=== PATIENT | female | born 1955 | race African-American/Black ===

== ENCOUNTER 2018-01-12 09:34 | Emergency (ER) | payer OTHER, SELFPAY ==
[2018-01-12] VITALS (8 sets, daily range): BP systolic 116–196; BP diastolic 6–125; PULSE 60–79; RESP 16–18; TEMP 36.2; O2SAT 94–100; BMI 34.2
--- NOTE | 2018-01-12 09:44 | RAD_ITS ---
STUDY: X-RAY - LEFT ANKLE REASON FOR EXAM: Female, 62 years old. Fell today. TECHNIQUE: 2 view(s) of the ankle. COMPARISON: Left tibia fibula, January 12, 2018. FINDINGS: Normal visualized distal tibia.. There is a posterior angulated fracture of the distal fibula. There is posterior dislocation of the tibiotalar articulation. Normal visualized talus and calcaneus. The visualized subtalar, talonavicular, calcaneocuboid and tarsal articulations are normal. There is diffuse soft tissue swelling. RAD/Ankle min 3 Views IMPRESSION: Posterior dislocation at the ankle with associated distal fibular fracture. Electronically Signed: Guerrero Wisdom DO at 10:26 EST Tel [phone], Service support ,
--- NOTE | 2018-01-12 09:44 | RAD_ITS ---
STUDY: X-RAY - LEFT TIBIA AND FIBULA REASON FOR EXAM: Female, 62 years old. Fall today. TECHNIQUE: 2 view(s) of the tibia and fibula were obtained. COMPARISON: Left ankle, January 12, 2018. [place] FINDINGS: There is a posterior dislocation of the ankle with an associated fracture of the distal fibula. The tibia appears intact. The knee is intact. There is diffuse soft tissue swelling. RAD/Tibia & Fibula 2 Views IMPRESSION: Fracture dislocation of the ankle. Electronically Signed: Guerrero Wisdom DO at 10:25 EST Tel [phone], Service support ,
[2018-01-12] MEDS: Ondansetron 4 MG/2 ML Vial IV (10:08)
--- NOTE | 2018-01-12 10:20 | ED.DCSUM_ITS ---
- ER Visit Summary Date of Service: 01/12/18 Chief Complaint: Left ankle injury History of Present Illness: The patient is a 62 F is otherwise healthy presents with left ankle injury. Patient was walking outside. She slipped on ice and fell with her ankle underneath her. She suffered she thinks an inversion injury. She had obvious deformity and was able to bear weight. She did not strike her head. She denies loss of consciousness. She has no history of prior orthopedic injury. The patient is otherwise very healthy at baseline. Physical Examination: Vital signs reviewed General: Well-nourished, well-developed Head: Normocephalic, atraumatic Eyes: Pupils equal and reactive, extraocular muscles intact Neck, supple, no lymphadenopathy Heart: Regular rate and rhythm Respiratory: No distress, clear bilaterally Abdomen: Soft, nontender, nondistended, no peritoneal signs Back: Nontender Extremities: She has obvious deformity of the left ankle. She has tenderness bimalleolar. There is mild pain at the proximal fibula. Pulses are normal. Skin is intact. Neurologic function intact distally. No pain at the head of the fifth metatarsal. Skin: Normal color no rash Neuro: Alert and oriented, no focal or lateralizing deficits Test Results: [] Emergency Department Course and Treatment: The patient has an obvious deformity of the ankle. Plain films do show a bimalleolar fracture with lateral dislocation. The patient was consented for conscious sedation. Patient was given propofol. The fracture was reduced at the bedside. The repeat films do show marked improvement of alignment. Her pulses were normal. The patient was counseled on compartment syndrome and reasons to return. I did discuss the patient with Dr. Rodriguez for close follow-up. He agrees with plan to see the patient in the office early this week. The patient already has crutches at home. She will be given analgesics. She is discharged. Treatment Plan: [] Disposition: Discharge Impression:. Bimalleolar left ankle fracture-closed with dislocation 2. Conscious sedation 3. Fracture reduction 4. Splint by ED physician This note was generated with [employer] dictation software. It may contain incorrect words, spelling, and punctuation that were not noted in review of the chart prior to signing ED Disposition - Plan for ED Patient: Disposition: Home or Assisted Living Chief Complaint: Lower Extremity Injury Instructions: ED Fx Ankle General Prescriptions: Hydrocodone Bitart/Apap 5-325 [[place] 5/325] 1 tab PO Q4H PRN PRN 3 Days #12 tab PRN Reason: Pain Referrals: Vasquez Rodriguez DO [STAFF PHYSICIAN] -
[2018-01-12] MEDS: Propofol 200 MG/20 ML Vial IV BOLUS (10:30)
--- NOTE | 2018-01-12 10:41 | RAD_ITS ---
STUDY: X-RAY - LEFT ANKLE REASON FOR EXAM: Female, 62 years old. Post reduction. TECHNIQUE: 3 view(s) of the ankle. COMPARISON: Left ankle, January 12, 2018. FINDINGS: There is mosque of the ankle joint. There is slight lateral subluxation. The distal fibular fracture is in grossly normal alignment. A semiopaque splint surrounds the ankle. RAD/Ankle min 3 Views IMPRESSION: Post reduction of left ankle fracture/dislocation. Electronically Signed: Guerrero Wisdom DO at 11:10 EST Tel [phone], Service support ,
== END 2018-01-12 12:03 | disposition home or self-care (01) ==
LOC: ED 11:07
PROVIDERS: Emergency Provider Emergency Medicine; Family Provider Family Medicine; PCP Family Medicine
DX: S82.842A Displaced bimalleolar fracture of left lower leg, initial encounter for closed fracture (principal); W00.0XXA Fall on same level due to ice and snow, initial encounter; Y93.01 Activity, walking, marching and hiking; Y92.9 Unspecified place or not applicable; Y99.9 Unspecified external cause status; J45.909 Unspecified asthma, uncomplicated; K21.9 Gastro-esophageal reflux disease without esophagitis
CPT/HCPCS: 27810; 73590; 73610; 96374; 96375; 99285; J7030; A4216; J2405

== ENCOUNTER 2018-01-23 07:49 | Day surgery (SDC) | payer OTHER, SELFPAY ==
[2018-01-23] VITALS (9 sets, daily range): BP systolic 119–156; BP diastolic 62–84; PULSE 68–82; RESP 16–18; TEMP 36.2–37.1; O2SAT 95–100; BMI 33.9
--- NOTE | 2018-01-23 08:15 | EKG12_ITS ---
Test Reason : PRE OP Blood Pressure : / mmHG Vent. Rate : 075 BPM Atrial Rate : 075 BPM P-R Int : 152 ms QRS Dur : 062 ms QT Int : 380 ms P-R-T Axes : 051 -20 005 degrees QTc Int : 424 ms Normal sinus rhythm Leftward axis Poor R wave progression Septal [place], age undetermined, cannot be excluded\ Consider precordial lead misplacement (v2-v3) Consider repeat ecg Inferior infarct , age undetermined Abnormal ECG Confirmed by MICHAEL CARY, OLMAN ([id number]), business editor AFSHAN YANCEY ([id number]) on 01/24/2018 1:47:00 PM Referred By: Vasquez Rodriguez Confirmed By:OLMAN RODRIGUEZ MD
[2018-01-23] MEDS: oxyCODONE HCl Cr 10 MG Tablet PO (08:58)
[2018-01-23] MEDS: Celecoxib 200 MG Capsule PO (08:58)
[2018-01-23] MEDS: Cefazolin 2 GM in 0.9% Normal Saline 100 ML IV (11:01)
--- NOTE | 2018-01-23 11:02 | OP.PN_ITS ---
Immediate Post-Op Note Date of Procedure: 01/23/18 Primary Surgeon/Physician: Vasquez Rodriguez DO formulator compounder: Irma Hawthorne Pre-Operative Diagnosis: Left closed fracture dislocation of the ankle Post-Operative Diagnosis: As above Surgery/Procedure Performed:: Left ankle open reduction internal fixation with syndesmotic repair Description of Surgical Findings:: See dictation Estimated Blood Loss: 20 Specimen's removed: None ASA Class: ASA1 Normal Healthy Patient - Admit VTE Documentation VTE Present on Admission: No VTE Mechan Device Prophylaxis: SCD's, Knee High WALESKA Hose VTE Pharm Prophylaxis ordered?: Yes
--- NOTE | 2018-01-23 11:02 | PCM.DC.ORTHO ---
Discharge Activity: Return to Normal Activity, May not drive while taking narcotic pain medications., May Shower, Use Walker, Use Crutches May resume sexual activity in: No Restrictions Ice area for (Minutes): 20 Weight Bearing Status: No weight bearing Keep extremity elevated above heart level: Left Leg Call your doctor if your incision/area has: Continuous Slow Oozing, Sudden Increased Bleeding, Increased Pain/ Swelling, Increased Redness, Foul Smelling Discharge, Swelling at the incision site Call your doctor if you observe: Fever of 101 or Higher, Coldness, Increased Pain, Numbness or Tingling, Change in Color, Inability to urinate, Inability to have a bowel movement, Using more than one pad per hour, Shortness of breath, Dizziness, Fainting spells, Swelling in the ankles, Chest pain, Prolonged hiccoughing, Increased palpitations (irregular heartbeat), Calf discomfort, Uncontrolled pain Suture Line Care: Avoid Pulling/Pushing, Avoid Pinching/Bending Allergies/Adverse Reactions: Allergies No Known Allergies Allergy (Verified 01/20/18 15:08) Medications to take at Discharge Albuterol IH (ProAir) [Proair Hfa (SP)Vent Pts] 1 puff INHALATION DAILY 01/20/18 Fluticasone 0.05% [Flonase Nasal [place]] 1 spray NASAL DAILY 01/20/18 Naproxen 500 mg PO PRN PRN 01/20/18 Aspirin E.C. [Ecotrin] 325 mg PO BID #30 tab 01/23/18 Cephalexin [Keflex] 500 mg PO Q12 #10 cap 01/23/18 Docusate Sodium [Colace] 100 mg PO BID PRN PRN #10 cap 01/23/18 Famotidine [Pepcid] 20 mg PO DAILY #30 tab 01/23/18 Oxycodone HCl/Acetaminophen [Percocet 5/325] 1 - 2 tablet PO Q4H PRN PRN #60 tablet 01/23/18 ProMETHAzine [Phenergan] 25 mg PO Q4H PRN PRN #10 tab 01/23/18 The following prescriptions were given: Oxycodone HCl/Acetaminophen [Percocet 5/325] 1 - 2 tablet PO Q4H PRN PRN #60 tablet PRN Reason: Pain ProMETHAzine [Phenergan] 25 mg PO Q4H PRN PRN #10 tab PRN Reason: Nausea Cephalexin [Keflex] 500 mg PO Q12 #10 cap Docusate Sodium [Colace] 100 mg PO BID PRN PRN #10 cap PRN Reason: Constipation Famotidine [Pepcid] 20 mg PO DAILY #30 tab Aspirin E.C. [Ecotrin] 325 mg PO BID #30 tab Primary Care Physician: Rock Berrios III, MD [Primary Care Provider] - Please Follow Up With: Vasquez Rodriguez DO When: CALL [facility] FOR APPT FOR 2 WEEKS Proposed Discharge Date: 01/23/18
--- NOTE | 2018-01-23 11:03 | PCM.OPRPT ---
Report of Operation Date of Procedure: 01/23/18 Pre-Operative Diagnosis: Left closed fracture dislocation of the ankle Post-Operative Diagnosis: As above Surgery/Procedure Performed:: Left ankle open reduction internal fixation with syndesmotic repair Description of Surgical Findings:: 62-year-old female who sustained a fall while tripping on ice resulting in a fracture dislocation of her left ankle. The injury was closed. It was reduced by the emergency room staff. She had a symmetric reduction of the tibial talar joint but had a Long C fibula fracture and associated small posterior malleolus fracture concerning for possible syndesmosis injury. My recommendation was for open reduction internal fixation and evaluation of the syndesmosis for possible primary repair as needed. Patient agreed. She was met in the holding area where the left lower extremity was identified and marked by the orthopedic surgeon. Initial preoperative evaluation showed the skin to be appropriate for surgical intervention. She subsequent taken the operating room in satisfactory condition with somewhat to place to identify patient up procedure limb. She received 2 g Ancef. She had a well-placed tourniquet left proximal thigh. She was then prepped and draped in usual fashion. Left lower extremity was elevated and the tourniquet was an Esmarch was used for exsanguination tourniquet was increased to 200 for 50 mmHg for roughly 45 minutes. Using C-arm visualization the fracture site was identified. Patient then had a longitudinal incision made across the distal fibula moving proximally. Sharp dissection down to soft tissues Bovie cautery to lose control any bleeding. Official peroneal nerve was protected. At that point time fracture site was identified and the ends freshened accordingly. A soft curette was used to remove any interdigitated early callus and soft tissue. We then copiously irrigated the joint. The fracture ends were somewhat comminuted on the inferior aspect of the fracture. We made an attempt at an initial closed reduction in longitudinal positioning again confirming placement under C arm in AP and lateral planes. However we made an attempt to lag lag screw would not hold again secondary to inferior comminution. At that point time a bridge technique was performed. A one third tubular plate was placed found to be in appropriate position AP and lateral planes. We then provisionally fixed the proximal aspect using standard AO technique. We then placed longitudinal traction across the fracture site and were able to reapproximate the overall anatomy with an acceptable positioning in length that was confirmed again AP and lateral planes. We had good reduction of her posterior malleolus fragment. At that point time we fixed distally using standard AO technique with a combination of cortical and cancellus screws as we transitioned into the distal fibula. Again we had good overall alignment which was acceptable in the face of the fracture site comminution. We then finished our proximal fixation using all cannot cortical technique again using standard AO technique for fixation. Upon completion of our fixation we turned our attention to performing a cotton test. This was done using standard technique under C-arm visualization. We had no widening of the syndesmosis and we had no medial clear space changes. We performed a secondary external rotation stress test which again did not show any signs of medial place place widening. Mortise view showed anatomic reduction of the mortise. The wound was then copiously irrigated using standard technique. We elected to place 2 cc of DBX bone graft around the comminution site. Wound was then gently irrigated one additional time including closed in a layer technique with #1 Vicryl 3-0 Vicryl in a subicular Monocryl. Patient was then injected with 30 cc of Marcaine solution around her incision site. She was then dressed with Xeroform 4 x 4's sterile web roll and placed into an L and U-splint. I was scrubbed and available time during our procedure. There is no drains or complications. Implants included the Synthes small frag set equipment. And again 2 cc of DBX bone grafting material. Patient be discharged home nonweightbearing. She will be placed on DVT prophylaxis to include aspirin 325 p.o. twice daily for the next 2 weeks with appropriate GI prophylaxis. Any issues please contact me. Specimen's removed: None Estimated Blood Loss (mL): 20 Grafts/Implants Used: Synthes small frag, 2 cc of DBX - Complications None - Admit VTE Documentation VTE Present on Admission: No VTE Mechan Device Prophylaxis: SCD's, Knee High WALESKA Hose VTE Pharm Prophylaxis ordered?: Yes
--- NOTE | 2018-01-23 11:05 | RAD_ITS ---
STUDY: X-RAY - LEFT ANKLE REASON FOR EXAM: Female, 62 years old. Intraoperative imaging. TECHNIQUE: 3 intraoperative view(s) of the ankle. COMPARISON: None. FINDINGS: Fluoroscopic services provided for open reduction and internal fixation of the distal fibular fracture. A sideplate and screw fixation device is seen. RAD/Ankle min 3 Views IMPRESSION: Intraoperative imaging provided for ORIF of the distal fibula. Of the distal fibular fracture. There is good alignment. Electronically Signed: Iker Valladares MD at 15:15 EST Tel [phone], Service support ,
[2018-01-23] MEDS: Bupivacaine 0.25% 30 ML Vial (12:19)
[2018-01-23] MEDS: Ketorolac 15 MG/ML Vial IV (13:15)
--- NOTE | 2018-01-23 13:20 | RAD_ITS ---
STUDY: X-RAY - LEFT ANKLE REASON FOR EXAM: Female, 62 years old. Postoperative evaluation. TECHNIQUE: 3 view(s) of the ankle. COMPARISON: Comparison is made with prior examination dated January 12, 2018. FINDINGS: The patient is status post open reduction and internal fixation of the distal fibular fracture utilizing screw and sideplate fixation device. There is good anatomical alignment. Normal medial and lateral malleoli. Normal tibiotalar articulation and ankle mortise. Plantar spur. The visualized subtalar, talonavicular, calcaneocuboid and tarsal articulations are normal. Postoperative soft tissue changes. RAD/Ankle min 3 Views IMPRESSION: Status post open reduction and internal fixation of the distal fibular fracture. There is good anatomic alignment. Postoperative soft tissue changes. Electronically Signed: Iker Valladares MD at 13:45 EST Tel [phone], Service support ,
[2018-01-23] MEDS: oxyCODONE 5 MG Tablet 10 MG PO (14:31)
== END 2018-01-23 17:46 | disposition home or self-care (01) ==
LOC: SDC 07:50 → AC 07:51
PROVIDERS: Family Provider Family Medicine; PCP Family Medicine; Visit Provider Orthopaedic Surgery
PROC: (CPT 27814; principal; 2018-01-23 10:40)
DX: S82.842A Displaced bimalleolar fracture of left lower leg, initial encounter for closed fracture (principal); W00.0XXA Fall on same level due to ice and snow, initial encounter; Y93.9 Activity, unspecified; Y92.9 Unspecified place or not applicable; Y99.9 Unspecified external cause status; J45.909 Unspecified asthma, uncomplicated; Z78.0 Asymptomatic menopausal state; Z98.51 Tubal ligation status
CPT/HCPCS: 01480; 27814; 73610; 76000; 93005; J7120; J2405

== ENCOUNTER → 2018-03-05 15:35 | Outpatient (CLI) | payer OTHER, SELFPAY ==
--- NOTE | 2018-03-05 15:37 | RAD_ITS ---
STUDY: X-RAY - LEFT ANKLE REASON FOR EXAM: Female, 62 years old. Postop ORIF left ankle TECHNIQUE: 3 view(s) of the ankle. COMPARISON: 01/23/2018 FINDINGS: The cast has been removed. The metallic fixation plate and screws are seen traversing the distal fibular fracture. Alignment is unchanged. No definite signs of periosteal new bone are identified. There is demineralization of the distal osseous structures likely reflecting disuse. A plantar calcaneal spur is seen. RAD/Ankle min 3 Views IMPRESSION: No change in alignment status post ORIF. Intact orthopedic hardware. No definite signs of healing. Distal osteopenia. Electronically Signed: Thanh Luevano DO at 7:52 EDT Tel , Service support ,
== END ==
PROVIDERS: Family Provider Family Medicine; PCP Family Medicine; Visit Provider Orthopaedic Surgery
DX: M25.572 Pain in left ankle and joints of left foot (principal)
CPT/HCPCS: 73610

== ENCOUNTER → 2018-04-14 08:21 | Outpatient (CLI) | payer OTHER, SELFPAY ==
--- NOTE | 2018-04-14 08:23 | RAD_ITS ---
STUDY: X-RAY - LEFT ANKLE REASON FOR EXAM: Female, 62 years old. Postoperative evaluation. TECHNIQUE: 3 view(s) of the ankle. COMPARISON: Comparison is made with prior study dated March 05, 2018. FINDINGS: The patient is status post open reduction and internal fixation of the distal fibular fracture utilizing screws and sideplate fixation device. There is healing of the fracture. There is good alignment. Normal tibiotalar articulation and ankle mortise. Calcaneal spur. The visualized subtalar, talonavicular, calcaneocuboid and tarsal articulations are normal. The soft tissue structures are unremarkable. RAD/Ankle min 3 Views IMPRESSION: Healing of the distal fibular fracture. The alignment is maintained. Electronically Signed: Iker Valladares MD at 13:54 EDT Tel [phone], Service support ,
== END ==
PROVIDERS: Family Provider Family Medicine; PCP Family Medicine; Visit Provider Orthopaedic Surgery
DX: M25.572 Pain in left ankle and joints of left foot (principal)
CPT/HCPCS: 73610

== ENCOUNTER → 2018-05-19 10:37 | Outpatient (CLI) | payer OTHER, SELFPAY ==
--- NOTE | 2018-05-19 10:50 | RAD_ITS ---
STUDY: X-RAY - LEFT ANKLE REASON FOR EXAM: Postop pain, swelling. TECHNIQUE: 3 view(s) of the ankle. COMPARISON: Radiographs 04/14/2018 and 03/05/2018. FINDINGS: There is an intact orthopedic plate and screws transfixing a healing fracture of the distal fibular diaphysis in anatomical alignment and position. Normal medial and lateral malleoli. Normal tibiotalar articulation and ankle mortise. There is a plantar calcaneal enthesophyte. The visualized subtalar, talonavicular, calcaneocuboid and tarsal articulations are normal. There is soft tissue swelling. RAD/Ankle min 3 Views IMPRESSION: Healing fracture of the distal fibula in anatomic alignment and position. Soft tissue swelling. Electronically Signed: Jaison Acosta MD at 14:10 EDT Tel , Service support ,
== END ==
PROVIDERS: Family Provider Family Medicine; PCP Family Medicine; Visit Provider Orthopaedic Surgery
DX: M25.572 Pain in left ankle and joints of left foot (principal)
CPT/HCPCS: 73610

== ENCOUNTER 2018-07-09 12:00 | Outpatient (RCR) | payer OTHER, SELFPAY ==
--- NOTE | 2018-03-06 13:33 | HP.PTEVAL_ITS ---
Patient's Visit Information SAVANNA BRISENO is a 62 year old F referred to Physical Therapy by DO SOFI Daly with a diagnosis of L ankle ORIF. Date of Evaluation: 03/06/18 Physical Therapist: Dariel Sun PT, - Visit Plan Frequency: 2-3x /Week Duration: 4-6 Weeks Plan: PROM/mobs to L ankle, stretching/strengthening, balance/proprio, bike, and HEP - Subjective Subjective: Pt reports she fell on black ice 01/12/18 which resulted in a frracture/dislocation of L ankle. DOS: 01/23/18. Pt had ORIF performed to repair her injured leg. Pt was in a cast until 4 weeks ago, and has been in a boot ever since. Pt has to wear her boot for 2 weeks, and then is allowed to walk without a boot. N T or N at this time. No sleep diff secondary to pain. Pt reports she has a job that requires her to ambulate a lot. Pt can negotiate stairs but has to do so one step at a time. 0/10 pain at rest, 3/10 at worst - Pain L ankle Pain Intensity (Out of 10): 0 Pain Intensity Range: 3 - Objective Neuro: B LE sensation is WNL to light touch. Observation: Incisions are healed. Moderate swelling noted. ROM: R ankle DF= 8, PF= 50, INV= 28, ever= 0; L ankel DF= -10, PF= 45, Inv= 0, Ever= 0. Gait: Pt ambulates with mild limp of L LE in cam boot. Slow canance. Girth at malleolus line: L ankle 28cm, R ankle 26 cm - Goals Goal 1:: Decrease L ankle pain x 50% TO aid with IADL's Goal Time Frame: 4-6 Weeks Goal 2:: Increase L ankle strength x 1 grade to aid with RTW Goal Time Frame: 4-6 Weeks Goal 3:: Increase L ankle DF ROM x 15 degrees to aid with restoring a normal gait pattern Goal Time Frame: 4-6 Weeks Goal 4:: I with HEP Goal Time Frame: 4-6 Weeks - Rehabilitation Potential Physical Therapy Diagnosis: L ankle pain, weakness, and limited ROM secondary to L ankle Fx Rehabilitation Potential: Good - Anticipated Interventions Patient/Client Instruction: Educate patient on: Condition, Plan of Care For the Purpose of:: To improve self management Therapeutic Exercise to Include: Strength training, Endurance training, Balance training, Flexibilty training, Passive ROM, Active ROM, Dynamic Lumbar Stabilization For the Purpose of:: To decrease pain, To increase ROM, To improve muscle performance and motor function Cryotherapy (ice pack, ice massage): Yes For the Purpose of:: To decrease pain Thank you for the opportunity to evaluate your patient. For Medicare and Medicare HMO plans, please review the plan of care and approve it. It will need to be FAXED BACK to us at [phone] for Medicare purposes. Please let me know if there are questions or concerns regarding this plan of care. Physician Signature: Date:
--- NOTE | 2018-05-20 10:45 | HP.PTREVAL_ITS ---
Vasquez Rodriguez, DO, It has been my pleasure to treat SAVANNA BRISENO over the last 20 visits for L ankle ORIF. Please see the progress note below for an update on the physical therapy plan of care! Subjective: Pt reports her ankle really swelled up over the weekend from walking more. Objective/Function: L ankle pain 12/11. L ankle ROM: DF= 3, PF= 40, Inv= 10, ever= 0 degrees. L ankle MMT: grossly 4/5 throughout but still painful with all testing. Girth at malleolus: 28 cm Plan Plan: Cont with POC 2-3 x's per week x 4 more weeks Goals Goal 1:: Decrease L ankle pain x 50% TO aid with IADL's Goal Time Frame: 4-6 Weeks Goal Progress: Progressing Goal 2:: Increase L ankle strength x 1 grade to aid with RTW Goal Time Frame: 4-6 Weeks Goal Progress: Progressing Goal 3:: Increase L ankle DF ROM x 15 degrees to aid with restoring a normal gait pattern Goal Time Frame: 4-6 Weeks Goal Progress: Progressing Goal 4:: I with HEP Goal Time Frame: 4-6 Weeks Goal Progress: Progressing Anticipated Interventions Patient/Client Instruction: Educate patient on: Condition, Plan of Care For the Purpose of:: To improve self management Therapeutic Exercise to Include: Strength training, Endurance training, Balance training, Flexibilty training, Passive ROM, Active ROM, Dynamic Lumbar Stabilization For the Purpose of:: To decrease pain, To increase ROM, To improve muscle performance and motor function Cryotherapy (ice pack, ice massage): Yes For the Purpose of:: To decrease pain Please do not hesitate to contact me at [phone] by phone or Fax: if you have questions or concerns regarding this new plan of care! Sincerely, Dariel Sun, PT,
--- NOTE | 2018-07-09 12:23 | HP.PTDCSUM ---
HP - PT D/C Summary It has been my pleasure to treat SAVANNA BRISENO under orders from Vasquez Rodriguez DO, for the diagnosis of L ankle ORIF for a total of 28 visit(s). Discharge Date: Please see the following information for a summary of their discharge status. - Subjective Subjective: Pt reports no pain this date, just stiffness - Pain L ankle Pain Intensity (Out of 10): 0 - Overall Improvement % Improvement: 90 - Objective Objective/Function: L ankle pain 0/10. L ankle ROM: df= 12, pf= 43 degrees. L ankle MMT: 5/5 throughout. I with HEP. Rx goals achieved - Goals Goal 1:: Decrease L ankle pain x 50% TO aid with IADL's Goal Progress: Goal Met Goal 2:: Increase L ankle strength x 1 grade to aid with RTW Goal Progress: Goal Met Goal 3:: Increase L ankle DF ROM x 15 degrees to aid with restoring a normal gait pattern Goal Progress: Progressing Goal 4:: I with HEP Goal Progress: Progressing - Plan Plan: Discharge - D/C Information If there are questions or concerns regarding this patient's physical therapy, please feel free to call me at [phone]. Thank you for the referral of this patient. Sincerely, Dariel Sun, PT,
--- NOTE | 2018-07-09 12:27 | HP.PTDCSUM_ITS ---
HP - PT D/C Summary It has been my pleasure to treat SAVANNA BRISENO under orders from Vasquez Rodriguez DO , for the diagnosis of L ankle ORIF for a total of 28 visit(s). Discharge Date: Please see the following information for a summary of their discharge status. - Subjective Subjective: Pt reports no pain this date, just stiffness - Pain L ankle Pain Intensity (Out of 10): 0 - Overall Improvement % Improvement: 90 - Objective Objective/Function: L ankle pain 0/10. L ankle ROM: df= 12, pf= 43 degrees. L ankle MMT: 5/5 throughout. I with HEP. Rx goals achieved - Goals Goal 1:: Decrease L ankle pain x 50% TO aid with IADL's Goal Progress: Goal Met Goal 2:: Increase L ankle strength x 1 grade to aid with RTW Goal Progress: Goal Met Goal 3:: Increase L ankle DF ROM x 15 degrees to aid with restoring a normal gait pattern Goal Progress: Progressing Goal 4:: I with HEP Goal Progress: Progressing - Plan Plan: Discharge - D/C Information If there are questions or concerns regarding this patient's physical therapy, please feel free to call me at [phone]. Thank you for the referral of this patient. Sincerely, Dariel Sun, PT,
== END 2018-07-09 13:23 | disposition home or self-care (01) ==
LOC: PT 12:00
PROVIDERS: Family Provider Family Medicine; PCP Family Medicine; Visit Provider Orthopaedic Surgery
DX: Z98.890 Other specified postprocedural states (principal)
CPT/HCPCS: 97110; 97140; 97161; 97530

== ENCOUNTER → 2019-07-30 12:50 | Outpatient (CLI) | payer OTHER, SELFPAY ==
[2019-07-30 12:43] VITALS: BMI 33.9
--- NOTE | 2019-07-30 12:51 | RAD_ITS ---
STUDY: X-RAY - LEFT ANKLE REASON FOR EXAM: Female, 64 years old. Ankle pain. TECHNIQUE: 3 view(s) of the ankle. COMPARISON: 3 views of the left ankle May 19, 2018 and April 14, 2018. FINDINGS: There is stable posterior periarticular spurring of the distal tibial plafond. Again seen is healed prior ORIF of the distal fibula with a lateral metal sideplate and screws fibula. Minimal degenerative cortical spurring at the tips of the medial and lateral malleoli. There is stable mild narrowing in the inferomedial tibiotalar joint space. Normal overall ankle mortise. Normal visualized talus. There is a plantar spur of the calcaneus. The visualized subtalar, talonavicular, calcaneocuboid and tarsal articulations are normal. There is no demonstrated osseous destructive lesion or acute fracture. Mild soft tissue swelling anterior to the distal tibia and ankle is unchanged. RAD/Ankle min 3 Views IMPRESSION: Stable x-ray examination of the left ankle, as described. Electronically Signed: Mohit Solis MD at 19:57 EDT , Service support ,
--- NOTE | 2019-07-30 12:51 | RAD_ITS ---
STUDY: X-RAY - RIGHT ANKLE REASON FOR EXAM: Female, 64 years old. Pain. TECHNIQUE: 3 view(s) of the ankle. COMPARISON: None. FINDINGS: Normal visualized distal tibia and fibula. Normal medial and lateral malleoli. Normal tibiotalar articulation and ankle mortise. Normal visualized talus there is a plantar spur of the calcaneus. The visualized subtalar, talonavicular, calcaneocuboid and tarsal articulations are normal. There is no demonstrated osseous destructive lesion or acute fracture. The soft tissue structures are unremarkable. RAD/Ankle min 3 Views IMPRESSION: Small plantar calcaneal spur, otherwise normal x-ray examination of the right ankle. Electronically Signed: Mohit Solis MD at 19:54 EDT , Service support ,
== END ==
PROVIDERS: Family Provider Family Medicine; PCP Family Medicine; Referring Provider Physician Assistant; Visit Provider Physician Assistant
DX: M25.571 Pain in right ankle and joints of right foot (principal); M25.572 Pain in left ankle and joints of left foot
CPT/HCPCS: 73610

== ENCOUNTER → 2020-06-20 15:20 | Outpatient (CLI) | payer OTHER, SELFPAY ==
[2020-06-17 15:36] VITALS: BMI 33.9
--- NOTE | 2020-06-20 15:35 | RAD_ITS ---
STUDY: X-RAY - LEFT ANKLE REASON FOR EXAM: Female, 64 years old. PAIN IN LEFT ANKLE FOR SEVERAL WEEKS NOW. HX OF SURGERY LEFT ANKLE Jan PER PATIENT. TECHNIQUE: 4 view(s) of the ankle. COMPARISON: 07/30/2019 FINDINGS: Normal visualized distal tibia. Stable surgical hardware in the distal fibula. No hardware complication or failure. Normal medial and lateral malleoli. Normal tibiotalar articulation, mild narrowing of the ankle mortise.. Normal visualized talus. The cranial spurs. The visualized subtalar, talonavicular, calcaneocuboid and tarsal articulations are normal. The soft tissue structures are unremarkable. RAD/Ankle min 3 Views IMPRESSION: Mild degenerative and postsurgical changes, no demonstrated fracture or suspicious osseous lesion Calcaneal spurs No significant interval change Electronically Signed: Mohit Rodgers MD at 8:50 EDT , Service support ,
== END ==
PROVIDERS: PCP Family Medicine; Referring Provider Physician Assistant; Visit Provider Physician Assistant
DX: M19.072 Primary osteoarthritis, left ankle and foot (principal)
CPT/HCPCS: 73610